=== PATIENT | female | born 1950 | race Caucasian/White ===

== ENCOUNTER → 2018-06-21 | Outpatient (CLI) | payer OTHER ==
--- NOTE | 2018-06-21 17:28 | RADIOLOGY IMAGING REPORT ---
FACILITY: [facility] PATIENT NAME: Antonietta Dubon : 1950 MR: [id number] V: [id number] EXAM DATE: ORDERING PHYSICIAN: NELSON CARRILLO TECHNOLOGIST: Location: [facility] - [place] Patient: Antonietta Dubon : 1950 Visit/Account:[id number] Date of Sevice: 06/21/2018 PELVIC HISTORY: Uterine enlargement, history of breast cancer TECHNIQUE: Transvaginal and transabdominal ultrasound pelvis. COMPARISON: None. FINDINGS: Uterus: Retroverted; 6.5 cm length x 4.1 cm AP x 5.6 cm transverse. Myometrium: There are innumerable small echogenic foci throughout the myometrium some which are produ cing acoustic shadowing. There is a 9.3 x 4.2 x 9.1 mm hypoechoic mass along the anterior aspect the lower uterine segment. Along the superior anterior aspect uterine fundus there is a 1.8 x 2.3 x 3.2 cm echogenic partially calcified mass. Endometrium: Not well seen; double thickness mm. Cervix: Nabothian cysts. Ovaries: Right - 1.8 x 1 x 1.7 cm Left - 1.9 x 1.2 x 1.5 cm Blood flow is documented in each ovary by duplex Doppler ultrasound. Adnexa: Grossly unremarkable. Free pelvic fluid: None. IMPRESSION: There is a 3.2 cm calcified fundal mass likely representing a fibroid There is a 9 mm hypoechoic mass along the anterior aspect lower uterine segment possibly an additiona l fibroid There are innumerable small echogenic foci throughout the myometrium, some which are producing acoust ic shadowing. These likely represent numerous myometrial calcifications. Of the differential diagno sis would include myometrial anterior although is less likely given the lack of symptoms. , Report Dictated By: Krista Aguilar MD at 06/21/2018 5:10 PM Report E-Signed By: Krista Aguilar MD at 06/21/2018 5:25 PM WSN:[id number]
== END ==
LOC: US 10:15
PROVIDERS: ATTEND Family Medicine
DX: N85.8 Other specified noninflammatory disorders of uterus (principal)
CPT/HCPCS: 76856